=== PATIENT | female | born 1975 | race African-American/Black ===

== ENCOUNTER 2017-11-17 11:25 | Emergency (ER) | payer MEDICAID ==
[2017-11-17] MEDS ORDERED: KETOROLAC TROMETHAMINE 60 MG/2 ML SDV IM ONE (13:30)
--- NOTE | 2017-11-17 13:35 | ER Document Report ---
ED GI/ - General Chief Complaint: Chest Pain Stated Complaint: CHEST PAIN Time Seen by Provider: 11/17/17 13:22 Mode of Arrival: Ambulatory Information source: Patient, [facility] Records Notes: This 42-year-old female patient comes emergency room complaining of severe pain to her right upper back, right upper quadrant abdomen and epigastric abdomen. This started about 3 AM this morning. She reports feeling like she had to loosen her bra due to the pressure discomfort. She has no history of gallbladder disease. TRAVEL OUTSIDE OF THE [place] IN LAST 30 DAYS: No - Related Data Allergies/Adverse Reactions: codeine [Codeine] Allergy (Verified 11/17/17 11:29) Sulfa (Sulfonamide Antibiotics) Allergy (Verified 11/17/17 11:29) sumatriptan [From Imitrex] Allergy (Verified 11/17/17 11:29) sumatriptan succinate [From Imitrex] Allergy (Verified 11/17/17 11:29) Past Medical History - General Information source: Patient, [facility] Records - Social History Smoking Status: Never Smoker Chew tobacco use (# tins/day): No Smoking Education Provided: No Frequency of alcohol use: None Drug Abuse: None Occupation: A Lives with: Family Family History: Reviewed & Not Pertinent Patient has suicidal ideation: No Patient has homicidal ideation: No - Past Medical History Cardiac Medical History: Reports: None Pulmonary Medical History: Reports: Hx Asthma EENT Medical History: Reports: None Neurological Medical History: Reports: Hx Migraine Endocrine Medical History: Reports: None Renal/ Medical History: Reports: None GI Medical History: Reports: Hx Irritable Bowel Musculoskeltal Medical History: Reports None Skin Medical History: Reports None Psychiatric Medical History: Reports: None Past Surgical History: Reports: Hx Breast Surgery, Hx Section, Hx Gynecologic Surgery - LEEP procedure, Hx Hysterectomy - Immunizations Immunizations up to date: Yes Hx Diphtheria, Pertussis, Tetanus Vaccination: Yes Review of Systems - Review of Systems Constitutional: No symptoms reported EENT: No symptoms reported Cardiovascular: No symptoms reported Respiratory: No symptoms reported Gastrointestinal: See HPI Genitourinary: No symptoms reported Female Genitourinary: denies: Last menstrual period - Hysterectomy Musculoskeletal: No symptoms reported Skin: No symptoms reported Hematologic/Lymphatic: No symptoms reported Neurological/Psychological: No symptoms reported Physical Exam - Vital signs Vitals: Temp Pulse Resp BP Pulse Ox 98.6 F 68 16 133/63 H 99 11/17/17 11:58 11/17/17 11:58 11/17/17 11:58 11/17/17 11:58 11/17/17 11:58 Interpretation: Normal - General General appearance: Alert In distress: Mild Notes: Patient is very uncomfortable at times having to stand up and leaning over the chair. - HEENT Head: Normocephalic, Atraumatic Eyes: Normal Pupils: PERRL Neck: Normal - Respiratory Respiratory status: No respiratory distress Breath sounds: Normal Chest palpation: Normal - Cardiovascular Rhythm: Regular Heart sounds: Normal auscultation Murmur: No - Abdominal Inspection: Obese Bowel sounds: Normal Tenderness: Tender - Very tender to palpate the right upper quadrant and some epigastric tenderness - Back Back: Nontender - She is not tender to palpate the right scapular region where the pain is being referred - Extremities General upper extremity: Normal inspection General lower extremity: Normal inspection - Neurological Neuro grossly intact: Yes - Psychological Associated symptoms: Normal affect, Normal mood - Skin Skin Temperature: Warm Skin Moisture: Dry Skin Color: Normal Course - Re-evaluation Re-evalutation: 11/17/17 17:12 Ultrasound shows multiple gallstones with sludge. No gallbladder wall thickening, no pericholecystic fluid. No biliary dilatation. Liver enzymes are normal. - Vital Signs Vital signs: Temp Pulse Resp BP Pulse Ox 98.6 F 68 16 133/63 H 99 11/17/17 11:58 11/17/17 11:58 11/17/17 11:58 11/17/17 11:58 11/17/17 11:58 - Laboratory Result Diagrams: 11/17/17 14:20 11/17/17 14:20 Laboratory results interpreted by me: 11/17/17 14:20 Calcium 10.9 H - Diagnostic Test Radiology reviewed: Image reviewed, Reports reviewed - Gallbladder ultrasound shows multiple stones with sludge. No gallbladder wall thickening, no pericholecystic fluid, no biliary dilatation Discharge - Discharge Clinical Impression: Cholelithiasis without cholecystitis Condition: Stable Disposition: HOME, SELF-CARE Additional Instructions: Gallbladder Disease: Your evaluation shows evidence of gallbladder disease. The gallbladder is a pouch under the liver which stores bile. Stones, infection, or irritation of the gallbladder cause attacks of pain. Certain foods -- fats in particular -- may provoke attacks. The usual treatment for gallbladder disease is surgical removal of the gallbladder -- called a cholecystectomy. You will be referred to a physician qualified to advise you on the best treatment for your problem. Hospitalization is not necessary. Take clear liquids only until you are painfree. After that, you should stay on a low-fat diet, with frequent SMALL meals. Call the doctor or return at once if you develop severe pain, repeated vomiting, fever, or jaundice (a yellow color in the skin and whites of the eyes) . //////////////////////////////////////////////////////////////////////////////// //////////////////////////////////////////////////////////////////////////////// //////////////// Your ultrasound shows multiple gallstones with sludge. There is no sign of obstruction or infection at this time. You will be prescribed pain medication to take as needed if Motrin or Aleve does not control the pain. Eat small meals and avoid fatty and greasy foods. Call [facility] tomorrow to schedule an appointment in the next week. RETURN TO THE EMERGENCY ROOM IF ANY NEW OR WORSENING SYMPTOMS. Prescriptions: Oxycodone HCl 5 mg PO ASDIR PRN #20 tablet PRN Reason: Forms: Return to Work Referrals: [facility] [Provider Group] - Follow up in 1 week (Call tomorrow for an appointment in the next week.)
--- NOTE | 2017-11-17 13:40 | EKG REPORT ---
SEVERITY:- OTHERWISE NORMAL ECG - SINUS ARRHYTHMIA, RATE [id number] : Confirmed by: Home Strickland MD 17-Nov-2017 13:39:22
[2017-11-17 14:30] LABS: ABSOLUTE BASOPHILS # (AUTO) 0.1 10^3/uL (0.0-0.2); ABSOLUTE LYMPHOCYTES (AUTO) 1.6 10^3/uL (0.5-4.7); ABSOLUTE MONOCYTES (AUTO) 0.6 10^3/uL (0.1-1.4); ABSOLUTE NEUT (AUTO) 7.6 10^3/uL (1.7-8.2); BASOPHILS % (AUTO) 1.1 % (0-2); HEMOGLOBIN 14.4 g/dL (12.0-15.5); LYMPHOCYTES % (AUTO) 16.3 % (13-45); MEAN CORPUSCULAR HEMOGLOBIN 32.5 pg (27.0-33.4); MEAN CORPUSCULAR HGB CONC 34.2 g/dL (32.0-36.0); MEAN CORPUSCULAR VOLUME 95 fl (80-97); MONOCYTES % (AUTO) 6.3 % (3-13); PLATELET COUNT 375 10^3/uL (150-450); RED BLOOD COUNT 4.41 10^6/uL (3.72-5.28); RED CELL DISTRIBUTION WIDTH 13.9 % (11.5-14.0); SEGMENTED NEUTROPHILS % (AUTO) 76.3 % (42-78); TOTAL CELLS COUNTED % (AUTO) 100 %
[2017-11-17 14:45] LABS: APPEARANCE,URINE CLEAR; BILIRUBIN,URINE NEGATIVE (NEGATIVE); COLOR,URINE YELLOW; GLUCOSE, URINE NEGATIVE (NEGATIVE); KETONES,URINE NEGATIVE (NEGATIVE); LEUKOCYTE ESTERASE,URINE NEGATIVE (NEGATIVE); NITRITE,URINE NEGATIVE (NEGATIVE); PROTEIN,URINE NEGATIVE (NEGATIVE); URINE SPECIFIC GRAVITY 1.023; UROBILINOGEN,URINE NEGATIVE mg/dL (<2.0)
[2017-11-17 14:56] LABS: ALANINE AMINOTRANSFERASE 28 U/L (9-52); ALBUMIN 4.5 g/dL (3.5-5.0); ALKALINE PHOSPHATASE 90 U/L (38-126); ANION GAP 13 (5-19); ASPARTATE AMINO TRANSFERASE 18 U/L (14-36); BILIRUBIN,DIRECT 0.2 mg/dL (0.0-0.4); BILIRUBIN,TOTAL 0.8 mg/dL (0.2-1.3); BLOOD UREA NITROGEN 8 mg/dL (7-20); CALCIUM 10.9 mg/dL (8.4-10.2); CARBON DIOXIDE 24 mmol/L (22-30); CHLORIDE 105 mmol/L (98-107); GLUCOSE 110 mg/dL (75-110); LIPASE 57.6 U/L (23-300); POTASSIUM 4.3 mmol/L (3.6-5.0); SODIUM 142.2 mmol/L (137-145); TOTAL PROTEIN 8.2 g/dL (6.3-8.2)
--- NOTE | 2017-11-17 16:57 | RADIOLOGY REPORT (SQ) ---
EXAM DESCRIPTION: U/S ABDOMEN LIMITED W/O DOP COMPLETED DATE/TIME: 11/17/2017 4:48 pm REASON FOR STUDY: RUQ abd pain COMPARISON: None. TECHNIQUE: Dynamic and static grayscale images acquired of the right upper quadrant and recorded on PACS. Additional selected color Doppler and spectral images recorded. LIMITATIONS: Study limited due to acoustical interference from fat or from air in the bowel. FINDINGS: PANCREAS: Obscured. LIVER: No masses. Echotexture normal. LIVER VASCULATURE: Normal directional flow of the main portal vein and hepatic veins. GALLBLADDER: Stones and sludge. Normal wall thickness. No pericholecystic fluid. ULTRASOUND-DETECTED ESCAMILLA'S SIGN: Positive. INTRAHEPATIC DUCTS AND COMMON DUCT: CBD and intrahepatic ducts normal caliber. No filling defects. INFERIOR VENA CAVA: Normal flow. AORTA: No aneurysm. RIGHT KIDNEY: Normal size. Normal echogenicity. No solid or suspicious masses. No hydronephrosis. No calcifications. PERITONEAL CAVITY AND RIGHT PLEURAL SPACE: No ascites or effusions. OTHER: No other significant finding. IMPRESSION: STONES AND SLUDGE IN THE GALLBLADDER. REPORTED POSITIVE SONOGRAPHIC ESCAMILLA SIGN. NO GA LLBLADDER WALL THICKENING OR PERICHOLECYSTIC FLUID. NO BILIARY DILATION. TECHNICAL DOCUMENTATION: JOB ID: [id number] [email or web address]- All Rights Reserved
[2017-11-17 17:52] VITALS: BP 124/80
== END 2017-11-17 18:03 | disposition home or self-care (01) ==
LOC: ER 11:25
DX: K80.20 Calculus of gallbladder without cholecystitis without obstruction (principal); R10.11 Right upper quadrant pain; R10.13 Epigastric pain; M54.89 Other dorsalgia; Z88.5 Allergy status to narcotic agent; Z88.2 Allergy status to sulfonamides; Z88.6 Allergy status to analgesic agent; J45.909 Unspecified asthma, uncomplicated
CPT/HCPCS: 93005; 99285; 96372; 36415; 83690; 85025; 80053; 81001; 76705; 93010; J1885

== ENCOUNTER 2017-12-08 10:43 | Day surgery (SDC) | payer MEDICAID ==
[2017-12-07 12:34] LABS: HEMATOCRIT 37.1 % (36.0-47.0); HEMOGLOBIN 12.5 g/dL (12.0-15.5); MEAN CORPUSCULAR HEMOGLOBIN 31.4 pg (27.0-33.4); MEAN CORPUSCULAR HGB CONC 33.6 g/dL (32.0-36.0); MEAN CORPUSCULAR VOLUME 93 fl (80-97); PLATELET COUNT 391 10^3/uL (150-450); RED BLOOD COUNT 3.97 10^6/uL (3.72-5.28); RED CELL DISTRIBUTION WIDTH 13.8 % (11.5-14.0)
[2017-12-07 13:03] LABS: ALANINE AMINOTRANSFERASE 33 U/L (9-52); ALBUMIN 3.7 g/dL (3.5-5.0); ALKALINE PHOSPHATASE 85 U/L (38-126); AMYLASE 78 U/L (30-110); ANION GAP 9 (5-19); ASPARTATE AMINO TRANSFERASE 15 U/L (14-36); BILIRUBIN,DIRECT 0.2 mg/dL (0.0-0.4); BILIRUBIN,TOTAL 0.4 mg/dL (0.2-1.3); BLOOD UREA NITROGEN 8 mg/dL (7-20); CALCIUM 9.7 mg/dL (8.4-10.2); CARBON DIOXIDE 27 mmol/L (22-30); CHLORIDE 106 mmol/L (98-107); GLUCOSE 92 mg/dL (75-110); POTASSIUM 3.9 mmol/L (3.6-5.0); SODIUM 141.6 mmol/L (137-145); TOTAL PROTEIN 6.8 g/dL (6.3-8.2)
[~2017-12-08 10:43] MED LIST: CEFAZOLIN 1 GM/D5W RTU 1 GM/50 ML RTUPB IV PRN; DEXAMETHASONE SOD PHOSPHATE INJ 4 MG/1 ML VIAL ONE; GLYCOPYRROLATE INJ 0.4 MG/2 ML VIAL ONE; LACTATED RINGERS 1000 ML IV PRN; LIDOCAINE 0.5% INJ-PF (5 MG/ML) 50 ML SDV SUBCUT PRN; LIDOCAINE 2% INJ-PF (20 MG/ML) 2 ML AMPUL ONE; NEOSTIGMINE METHYLSULFATE 10 MG/10 ML VIAL ONE; ONDANSETRON HCL INJ/PF 4 MG/2 ML SDV ONE; ROCURONIUM BROMIDE INJ 50 MG/5 ML VIAL IV ONE
[2017-12-08] MEDS ORDERED: BUPIVACAINE HCL 0.25 % INJ/PF (2.5 MG/1 ML) 30 ML VIAL ONE (11:00)
[2017-12-08] MEDS ORDERED: HYDROMORPHONE HCL INJ/PF 2 MG/ML AMPULE ONE (11:19)
[2017-12-08] MEDS ORDERED: MIDAZOLAM 2 MG/2 ML INJ ONE (11:20)
[2017-12-08] MEDS ORDERED: PROPOFOL INJ 200 MG/20 ML VIAL IV ONE (11:20)
[2017-12-08] MEDS ORDERED: FENTANYL CITRATE INJ/PF 100 MCG/2 ML AMPUL ONE ×3 (11:20→14:39)
[2017-12-08] MEDS ORDERED: ACETAMINOPHEN 100 ML IV ONE (11:20)
[2017-12-08] MEDS ORDERED: PROMETHAZINE HCL INJ 25 MG/1 ML VIAL IV PRN (12:36)
[2017-12-08] MEDS ORDERED: FENTANYL CITRATE INJ/PF 100 MCG/2 ML AMPUL IV PRN ×3 (12:36)
[2017-12-08] MEDS ORDERED: DIPHENHYDRAMINE HCL 50 MG/ML VIAL IV PRN (12:36)
[2017-12-08] MEDS ORDERED: KETOROLAC TROMETHAMINE 10 MG TABLET PO PRN (14:22)
--- NOTE | 2017-12-08 14:22 | PDOC DISCHARGE SUMMARY ---
Discharge Summary (SDC) - Discharge Final Diagnosis: cholecystitis Date of Surgery: 12/08/17 Discharge Date: 12/08/17 Condition: Stable Treatment or Instructions: [facility] [address], [place] [address] Discharge Instructions: Laparoscopic Surgery 1. General Information: a. DO NOT DRIVE a car or operate dangerous machinery for 3-4 days or while taking narcotic pain pills. b. DO NOT consume alcohol, tranquilizers, sleeping medications or any non- prescribed medications for 24 hours unless approved by your doctor or as long as taking narcotic prescription medications. c. DO NOT make important decisions or sign any important papers for the first 24 hours after surgery. d. When discharged home the same day of surgery have a responsible person with you for the first night. 2. Activity Restrictions: 3 weeks a. NO heavy lifting, straining abdominal muscles, bending over a lot, yard work, house work, or sports for [address] NOT drive for 3-4 days. c. It is fine to go for walks, up and down steps, ride in a car. d. Elevate your head when sleeping/resting. 3. Treatment: a. You may shower 24 hours after surgery, no baths or swimming for 2 weeks. Remove band-aids or dressings before shower but leave paper strips (steri-strips ) on the skin to fall off on their own. If still on at postoperative visit they will be removed then. b. Drainage of fluid or blood is not unusual from an incision. If occurs, you can clean with peroxide and cotton ball daily and cover with dry gauze until the wound seals. c. If a lot of bleeding occurs, you can hold pressure with a gauze or cloth over the site for 10 minutes and it will usually stop. If bleeding continues you will need to call for possible evaluation in office or emergency room. 4. Medications: a. __Toradol__ may be taken for pain as needed, one tablet every 6 hours. Stop the narcotic when able since you cannot take it and drive, and they cause constipation. You may switch to plain Tylenol, Advil or Aleve as you transition from the narcotic. Many adults find good pain relief with Advil 600-800 mg three times a day with meals. This can cause indigestion, ulcers, and kidney problems with long-term use. b. You should resume all normal medications unless a change is specified by your doctors. 5. Diet: Begin with clear liquids and may progress to your normal diet if not nauseated. No high fat, high protein foods the day of surgery. 6. The following may occur after laparoscopic surgery: a. Shoulder or upper back ache from retained gas that should resolve in 1-2 days b. Soreness and bruising at incision sites will resolve with time. c. Scrotal swelling (labia in women) and bruising is often seen after hernia surgery. d. Sore throat e. Fatigue may last days to weeks. f. Difficulty urinating may occur and may need to come into emergency room for urinary catheter placement. 7. Notify Physician If: a. Worsening or pain not improved with pain medication b. Persistent nausea and vomiting c. Fever above 101 d. Persistent bleeding or swelling at operative site e. Unable to urinate and uncomfortable bladder 6-8 hours after surgery 8..Follow Up Care: a. Schedule a follow up appointment with your doctor for 2 weeks. In the event of any postoperative problems or questions or you may call the office during business hours or the On-Call physician evenings and weekends at [facility]. [facility] I understand the instructions for my postoperative care as described above and a copy has been given to me. Patient/Significant Other Witness Date Prescriptions: Ketorolac Tromethamine [Toradol 10 mg Tablet] 10 mg PO Q6HP PRN #25 tablet PRN Reason: Referrals: EVETTE PEGUERO MD [Primary Care Provider] - Discharge Diet: Other (Comments) - small bland portions Discharge Activity: Activity As Tolerated, Walk Frequently Report the Following to Your Physician Immediately: Nausea, Vomiting, Increase in Pain, Fever over 101 Degrees, Drainage-Foul Smelling
[2017-12-08] MEDS ORDERED: ONDANSETRON HCL INJ/PF 4 MG/2 ML SDV IV PRN (14:23)
--- NOTE | 2017-12-08 14:36 | Operative Report ---
Operative Report DATE OF SURGERY: 12/08/17 PREOPERATIVE DIAGNOSIS: Chronic cholecystitis with cholelithiasis POSTOPERATIVE DIAGNOSIS: Same extremely fibrotic chronically inflamed cholecystitis cholelithiasis OPERATION: 1. Laparoscopic cholecystectomy. 2. Extremely difficult modifier. 3. Drainage of subhepatic space SURGEON: LILIA HARVEY 1ST HOEING ROW BOSS: PIERO DODSON ANESTHESIA: GA TISSUE REMOVED OR ALTERED: 1 gallbladder into fragments with stones COMPLICATIONS: None ESTIMATED BLOOD LOSS: 200 cc INTRAOPERATIVE FINDINGS: See below PROCEDURE: The patient was seen in the preop holding area then taken to the main operating room where general anesthesia was induced. Arms were abducted, abdomen exposed , prepped and draped in sterile fashion: Instrumentation was set up for laparoscopic cholecystectomy. Plan and surgical timeout were conducted. Supraumbilical vertical incision made with a knife Veress needle inserted the peritoneal cavity pneumoperitoneum was established. Veress needle was removed, 5 mm port was inserted. Under direct visualization using a 5 mm flexible scope , 3 additional 5 mm ports were inserted one in the subxiphoid through subcostal area. Findings are significant for a significantly enlarged, and chronically inflamed gallbladder. There were densities between the gallbladder and the gastro-colic omentum as well as the hepatic flexure. All of these adhesions were taken down with LigaSure and gentle traction dissection. We now decompress the gallbladder approximately 15 cc of mucus and bile. The gallbladder wall was extremely thickened. You were able to elevate the gallbladder with graspers up over the liver bed to some degree, however due to the extensive fixation of the gallbladder to the subhepatic space, there was minimal compliance to the tissue. The duodenal area was clear and free of pathology. The neck of the gallbladder however was extremely densely fibrotic and adhesed with no clearly detectable landmarks. For this reason we elected to take the gallbladder down from the fundus. Graspers were repositioned, and under excellent visualization we spent about 45 minutes to an hour taken the gallbladder off of the liver bed using a combination of hook and electrocautery dissection. Is extremely tedious because of the Biobond being of the gallbladder to the liver bed. Fortunately we are able to stay in the appropriate plane during this dissection. When we have the gallbladder two thirds off of the undersurface of the liver, I made the decision to perform a subtotal cholecystectomy and this was affected by placing a large 0 PDS loop around the proximal third of the gallbladder and securing the knot. The gallbladder was then amputated proximal to this, thereby freeing up the distal two thirds of the gallbladder. Gallbladder fragment was placed over the liver for later retrieval. We now do our attention to the proximal third of the remaining gallbladder infundibulum. Of note prior to the cholecystectomy, we did cauterize and used a ligature for control of it was felt to be a dominant cystic artery or branch thereof, but again delineation of the anatomy was extremely difficult if not impossible. The less we were confident we were now relating the proximal third of the gallbladder tapering off towards its neck but again the degree of bile binding between the infundibulum of the deeper structures was extremely intense. Seated in a methodical circumferential fashion by extracting all stones from the gallbladder infundibulum and neck and retrieving although stones. We now teased the serosal surface of the neck of the gallbladder off the surrounding structures to the point that we have the gallbladder suspended from the cystic duct remnant with some fibrotic tissue. These were taken. Then placed a 0 PDS Endoloop suture around the state duct proximally and amputated the proximal third of the gallbladder from the cystic duct. Photos were taken. Placed in Endobag to the patient's supraumbilical port site incision after extending the fascial defect. Both fragments of the gallbladder and all stones were retrieved in the Endobag and brought out of the patient and passed to pathology. We returned the peritoneal cavity checked for any mechanical bleeding there was none. Of note there approximately 200 cc of blood loss during the very tenuous dissection of the gallbladder from the liver bed. Acted R PDS suture on the cystic duct stump and it was intact. We placed a large Curt drain through 1 of the right upper quadrant port site incisions trimmed to appropriate configuration and sewed it to the surrounding skin with 3-0 suture. The reason for the extremely difficult modifier was because the operation took 2 hours with gentle meticulous dissection. This was again due to chronic inflammation with bile bonding between the posterior surface of the gallbladder and the inferior surface of the liver. The Curt drain was be in satisfactory position. Patient was leveled out and no evidence of mechanical bleeding identified. We felt the operation was complete, all ports removed under direct visualization, pneumoperitoneum evacuated, and supraumbilical fascial defect closed with multiple 0 PDS suture and all other incisions closed with 3-0 Vicryl benzoin and Steri-Strips. Patient tolerated procedure well, extubated, taken recovery in stable condition. The physician operations administrative assistant, Ms. Whitney, provided assistance during this case by: Assisting and port insertion, retracting tissue, instillation of local anesthesia and closure of skin incisions.
[2017-12-08 17:21] VITALS: BP 131/87
== END 2017-12-08 16:55 | disposition home or self-care (01) ==
LOC: OROUT 10:43
PROVIDERS: ATTEND Surgery
PROC: 0FT44ZZ Resection of Gallbladder, Percutaneous Endoscopic Approach (ICD-10-PCS; principal; 2017-12-08 12:15)
DX: K80.12 Calculus of gallbladder with acute and chronic cholecystitis without obstruction (principal); K82.8 Other specified diseases of gallbladder; I10 Essential (primary) hypertension; E03.9 Hypothyroidism, unspecified; E11.9 Type 2 diabetes mellitus without complications
CPT/HCPCS: 36415; 82150; 85027; 81025; 80076; 80048; 88304 ×2; 47562; J2250; J0690; J3490 ×4; J1100; J3010; J2405; S0020; J2704; J0131; 790; J1170